=== PATIENT | male | born 1945 | race Caucasian/White ===

== ENCOUNTER 2019-07-17 07:20 | Outpatient (CLI) | payer MEDICARE, SELFPAY ==
--- NOTE | ~2019-07-17 | US_ITS ---
EXAMINATION: US [facility] DATE: 07/17/2019 08:24 INDICATION: Abdominal aortic aneurysm screening. Risk factors of smoking, hypercholesterolemia and hy pertension. TECHNIQUE: Grayscale, color Doppler, and pulsed Doppler images of the aorta and common iliac arteries were obtained. COMPARISON: None. FINDINGS: The proximal aorta measures 2.5 cm. The mid aorta measures 3.0 cm. The distal aorta measures 2.8 cm. The right common iliac artery measures 1.6 cm. The left common iliac artery measures 1.3 cm. The infe rior vena cava is normal. IMPRESSION: 1. 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 Reviewed, dictated and finalized at location A. IMPRESSION: 1. Mild ectasia of the mid abdominal aorta measuring up to 3.0 cm in maximal di ameter.
== END 2019-07-17 07:21 | disposition home or self-care (01) ==
PROVIDERS: PCP Internal Medicine; Visit Provider Internal Medicine Cardiovascular Disease
DX: F17.200 Nicotine dependence, unspecified, uncomplicated (principal); I77.811 Abdominal aortic ectasia
CPT/HCPCS: 76706

== ENCOUNTER → 2020-05-31 07:34 | Outpatient (REF) | payer MEDICARE, SELFPAY | LOC: ANHLAB 07:34 | PROVIDERS: PCP Internal Medicine; Visit Provider Nurse Practitioner | DX: C44.222 Squamous cell carcinoma of skin of right ear and external auricular canal (principal) | CPT/HCPCS: 88305; 88331 ==